=== PATIENT | male | born 1960 | race Caucasian/White ===

== ENCOUNTER → 2016-05-31 09:14 | Day surgery (SDC) | payer OTHER ==
--- NOTE | 2016-05-06 07:04 | HP ---
PREOPERATIVE HISTORY AND PHYSICAL: DATE OF OFFICE VISIT/ENCOUNTER: 05/04/16 DATE OF SURGERY/ADMISSION: 05/17/16 [facility] ATTENDING SURGEON: Adalgisa Starr MD (dictated by HA Fitch) PROCEDURE: Left wrist arthrodesis. CHIEF COMPLAINT: Chronic left wrist pain. HISTORY OF PRESENT ILLNESS: This is a 55-year-old male with ongoing left wrist pain that began with a work-related injury on 10/21/11. He has had several surgical procedures on this wrist in the past by Dr. Rebecca Sahu; but, unfortunately, the patient continues to have constant aching in the wrist, limited range of motion, and has been unable to work. At this point, Dr. Starr is recommending a full wrist fusion/arthrodesis and the patient has consented to proceed. PAST MEDICAL HISTORY: Hypertension. PAST SURGICAL HISTORY: 1. Hernia repair. 2. Two surgeries on left wrist including an ulnar shortening osteotomy and a partial fusion. 3. Surgery on right hand. 4. Nose surgery. CURRENT MEDICATIONS: 1. Amlodipine besylate. 2. Lisinopril. 3. Metoprolol tartrate. ALLERGIES: No known drug allergies. FAMILY MEDICAL HISTORY: Noncontributory. SOCIAL HISTORY: The patient is not currently working, but he is employed in [employer]. He denies tobacco and illicit drug use. He does admit to alcohol use. He consumes approximately a case of beer per week. REVIEW OF SYSTEMS: General: Negative for fevers or chills. Positive for occasional night sweats. No known anesthesia problems. HEENT: Negative for headache, lightheadedness, or syncopal episodes. Integumentary: Negative for abrasions, lesions, or open wounds. Cardiothoracic: Positive for hypertension. Negative for chest pain, palpitations, or edema. Pulmonary: Negative for shortness of breath with exertion, chronic cough, or COPD. GI: Negative for nausea, vomiting, diarrhea, constipation, or GERD. : Negative for nocturia, urinary frequency, urgency, history of UTIs, or kidney problems. Musculoskeletal: Positive for current complaint. Negative for chronic or intermittent back pain or history of fractures. Neurological: Negative for paresthesias, numbness, history of seizure, stroke, or epilepsy. Endocrine: Negative for diabetes or thyroid issues. Hematologic: Negative for easy bruising , anemia, excessive bleeding, or history of DVT. Infectious Disease: Negative for history of MRSA, hepatitis C, or HIV. PHYSICAL EXAMINATION GENERAL: Well-developed, well-nourished, 55-year-old male, in no acute distress. VITAL SIGNS: Height 5 feet 10 inches, weight 215 pounds, pulse rate 78, blood pressure 140/98. HEENT: Normocephalic, atraumatic. Pupils are equal, round, and reactive to light and accommodation. Extraocular movements are intact. Throat is clear. NECK: Supple. No palpable lymph nodes. PULMONARY: Lungs are clear to auscultation bilaterally. No wheezes, rales, or rhonchi. CARDIOTHORACIC: Regular rate and rhythm. S1, S2. No murmurs, rubs, or gallops. No edema. ABDOMEN: Positive bowel sounds, soft, nontender. NEUROLOGICAL: Alert and oriented x3. Cranial nerves II through XII are intact. Sensation is intact to light touch. MUSCULOSKELETAL: On exam of the left wrist, there is mild swelling present on the ulnar aspect. Generalized tenderness to palpation across the dorsum. Active extension to only a neutral position. Flexion to approximately 25 degrees. Minimal ulnar and radial deviation available. Full supination and pronation. The patient can make a full fist. Neurovascular function is intact. IMAGING: X-rays of the left wrist show posttraumatic arthritis. IMPRESSION: Posttraumatic arthritis of left wrist, status post an ulnar shortening osteotomy and a partial wrist effusion. PLAN: The patient is scheduled to undergo a left wrist arthrodesis with Dr. Starr on 05/17/16. He will return to the office in 10 to 14 days postop for followup and suture removal. A prescription for P[employer] was e-scribed to the patient's pharmacy for postoperative pain management. HA FITCH [id number]/[facility] #: [id number] MTDD
[~2016-05-31 09:14] MED LIST: Buffered Lidocaine 1% SYR 3ML* 3 ML/SYR SYRINGE INTRADERM ONE; Buffered Lidocaine 1% SYR 3ML* 3 ML/SYR SYRINGE ONE; Bupivacaine 0.5% SDV PF* 30 ML VIAL ONE; DiMENhydriNATE IV* 50 MG/ML VIAL IV PUSH PRN; EPHEDrine (Pressors)* 50 MG/ML VIAL ONE; Famotidine IV* 10 MG/ML 2 ML (20 mg) IV ONE; Famotidine IV* 10 MG/ML 2 ML (20 mg) ONE; HYDROcodone/ACETAMIN 5-325 MG* 1 TAB ONE; HYDROmorphone INJ* 1 MG/ML CARPUJECT SYRINGE ONE; KETAMINE HCL* 50 MG/ML 10 ML VIAL ONE; Ketorolac INJ* 30 MG/ML 1 ML VIAL ONE; Lidocaine 2% PF * 5 ML VIAL ONE; Metoprolol Tartrate TAB* 25 MG ONE; Midazolam* 1 MG/ML 5 ML VIAL (5 MG) ONE; Ondansetron INJ* 2 MG/ML VIAL ONE; Propofol* 10 MG/ML 20 ML BTL IV PUSH ONE; Sodium Citrate/Citric Acid* 15 ML UDC PO ONE; ceFAZolin 2 GM PREMIX (*) 2 GM/50 ML BAG IVPB ONE; fentaNYL* 50 MCG/ML 2 ML VIAL (100 MCG VIAL) ONE; oxyCODONE/Acetamin 5/325 MG* TAB PO PRN
[2016-05-31] MEDS: HYDROmorphone INJ* 1 MG/ML CARPUJECT SYRINGE IV PRN ×3 (14:00→14:24)
[2016-05-31 14:55] VITALS: BP 141/89
--- NOTE | 2016-06-01 01:59 | OP ---
DATE OF OPERATION: 05/31/16 [facility] DATE OF : 64 SURGEON: Dr. Starr. TELEPHONE SOLICITOR: HA Fitch ANESTHESIOLOGIST: Leeanne Gonzales MD ANESTHESIA: General. PRE-OP DIAGNOSIS: Posttraumatic arthritis, left wrist. POST-OP DIAGNOSIS: Posttraumatic arthritis, left wrist. OPERATIVE PROCEDURE: Left wrist arthrodesis and hardware removal. ESTIMATED BLOOD LOSS: Zero. TOURNIQUET TIME: About an hour and 15 minutes. INDICATIONS FOR PROCEDURE: Marbin Navarro is a 55-year-old male who has had left wrist injury which has resulted in significant arthritis. He has had a previous four-bone fusion but now has radiocarpal arthritis. He presents for left wrist arthrodesis. DESCRIPTION OF PROCEDURE: The patient was brought to the operating room and was given a general anesthetic and placed in a supine position on the operating table with the tourniquet around his left upper arm. The skin of his left upper extremity was prepped and draped in the usual sterile fashion. The area of the incision was infiltrated with 10 cc of Marcaine 0.5% plain. A longitudinal incision was made incorporating the previous scar and dissected down to the extensor retinaculum. The retinaculum was incised in the fourth compartment. The EPL had been transposed radially in previous procedures. The extensor tendon was carefully dissected out from abundant scar tissue and retracted. The hardware that was used for the four-bone fusion was 3 Acutrak screws. They all were prominent and so were removed with the appropriate screw flatbed truck driver. The articular surface of the radius and the scaphoid and lunate was then removed with the saw down to bare cancellous bone. The Juliet's tubercle was removed with the saw and the bony fragment flipped over as a bone graft. A short bend plate from the [employer] wrist arthrodesis set was secured with 4 proximal and 4 distal screws and the compression device was used to get good apposition of the bony fragments. Position of the hardware and arthrodesis fragments checked on the C-arm in the AP and lateral views and found to be satisfactory. The wound was copiously irrigated with saline. More bone graft was packed in the fusion site from the bone that had been removed. Extensor retinaculum was repaired with 2-0 Polysorb suture and the skin edges were reapproximated with 4-0 nylon suture. The wound was dressed with Xeroform, 4x4 , Webril, and a volar splint. The patient tolerated the procedure well, was brought to the recovery room in good condition. [id number]/[facility] #: [id number] [facility]ITAL[facility]
--- NOTE | 2016-06-01 17:10 | RAD ---
CPT II Codes: 6045F INDICATION: Chronic left wrist pain TECHNIQUE: Intraoperative fluoroscopy was provided during plate and screw fusion of the left wrist. FINDINGS: 2 spot films depict interval placement of a plate and screw fixator spanning the dorsal surface of the distal radius extending to the proximal third metacarpal. Fluoroscopy time: 30 seconds IMPRESSION: As above.
== END | disposition home or self-care (01) ==
LOC: OREAST 09:14
PROVIDERS: ATTEND Orthopaedic Surgery
DX: M19.132 Post-traumatic osteoarthritis, left wrist (principal); I10 Essential (primary) hypertension
CPT/HCPCS: 76000; 88300; 88304; 88311; C1713; C1776; J0690; J1170; J1885; J2250; J2405; J2704; J3010